=== PATIENT | male | born 1940 | race Hispanic/Latino ===

== ENCOUNTER 2020-01-15 16:14 | Inpatient (IN) | payer MEDICARE, OTHER ==
[~2020-01-15] VITALS: Ht 154.9 cm; Wt 66.9 kg
[2020-01-15] MEDS ORDERED: GABAPENTIN100 MG (16:26)
[2020-01-15] MEDS ORDERED: FAMOTIDINE20 MG (16:26)
[2020-01-15] MEDS ORDERED: GLIPIZIDE5 MG (16:26)
[2020-01-15] MEDS ORDERED: ATORVASTATIN CA80 MG (16:26)
[2020-01-15] MEDS ORDERED: LOSARTAN POTASS50 MG (16:26)
[2020-01-15] MEDS ORDERED: PANTOPRAZOLE SO40 MG (16:26)
[2020-01-15] MEDS ORDERED: METFORMIN HCL1000 MG (16:26)
[2020-01-15] MEDS ORDERED: CLOPIDOGREL75 MG (16:26)
[2020-01-15] MEDS ORDERED: CARVEDILOL12.5 MG (16:26)
[2020-01-15] MEDS ORDERED: ISOSORBIDE MONO30 MG (16:26)
[2020-01-15 16:57] LABS: EOSINOPHILS % 0.2 % (0.0-6.0); HEMATOCRIT 28.5 % (38.2-49.6); LYMPHOCYTES # (AUTO) 0.9 (1.0-3.2); MEAN CORPUSCULAR HEMOGLOBIN 27.6 pg (28-32); MEAN CORPUSCULAR HGB CONC 31.6 g/dL (31-35); MEAN CORPUSCULAR VOLUME 87.4 fL (81-99); MONOCYTES # (AUTO) 1.2 (0.2-0.8); MONOCYTES % 18.1 % (4.4-11.3); NEUTROPHILS # (AUTO) 4.2 (2.1-6.9); NEUTROPHILS % 66.4 % (38.7-80.0); PLATELET COUNT 124 x10e3/uL (140-360); RED BLOOD COUNT 3.26 x10e6/uL (4.3-5.7); RED CELL DISTRIBUTION WIDTH 16.5 % (11.7-14.4)
[2020-01-15 17:02] LABS: INR 1.06; PARTIAL THROMBOPLASTIN TIME 39.8 seconds (23.8-35.5); PROTHROMBIN TIME 14.5 seconds (11.9-14.5)
[2020-01-15 17:11] LABS: ALANINE AMINOTRANSFERASE 21 IU/L (0-55); ALBUMIN 3.4 g/dL (3.5-5.0); ALBUMIN/GLOBULIN RATIO 0.8 (0.8-2.0); ALKALINE PHOSPHATASE 125 IU/L (40-150); ANION GAP 17.8 mmol/L (8-16); BLOOD UREA NITROGEN 23 mg/dL (7-26); BUN/CREATININE RATIO 21 (6-25); CALCIUM 9.9 mg/dL (8.4-10.2); CARBON DIOXIDE 21 mmol/L (22-29); CHLORIDE 102 mmol/L (98-107); CREATINE KINASE 80 IU/L (30-200); CREATININE, SERUM 1.08 mg/dL (0.72-1.25); EST GLOMERULAR FILTRATION RATE > 60 ML/MIN (60-); GLUCOSE 101 mg/dL (74-118); POTASSIUM 4.8 mmol/L (3.5-5.1); SODIUM 136 mmol/L (136-145)
--- NOTE | 2020-01-15 17:11 | Diagnostic Imaging Report ---
History: History of fall, syncopal episode 10 days ago. Patient with hematoma to right side of the head. Comparison studies: None Technique: Axial images were obtained from the brain and cervical spine. Coronal and sagittal images reconstructed from the axial data. Dose modulation, iterative reconstruction, and/or weight based adjustment of the mA/kV was utilized to reduce the radiation dose to as low as reasonably achievable. Intravenous contrast: None Findings: Head CT: Scalp/skull: There is a right parietal scalp hematoma which measures up to 2.5 cm in thickness. While the hematoma is predominantly low density, there are multiple foci of hyperdensities suggestive of more acute blood products. There is no underlying calvarial fracture. Brain sulci: Moderately prominent Ventricles: Moderately prominent. No hydrocephalus. Extra-axial spaces: No masses. No fluid collections. Parenchyma: Ill-defined periventricular and subcortical white matter hypodensities are nonspecific but consistent with chronic microvascular ischemic changes. No masses, hemorrhage, acute or chronic cortical vascular insults. Sellar/suprasellar region: No abnormalities. Craniocervical junction: Patent foramen magnum. No Chiari one malformation. Cervical spine CT: Airway: Patent. Fractures: None. Soft tissues: No gross abnormalities. Atlantoaxial articulation: Intact. Alignment: Normal lordosis. No scoliosis. Cervicomedullary junction: No abnormalities. Patent foramen magnum. Vertebrae: No infection or neoplasm. Degenerative changes: Multilevel cervical spondylosis is present with varying degrees of disc height loss, posterior disc osteophyte complexes, uncovertebral hypertrophy, and facet hypertrophy. There is no severe osseous narrowing of the spinal canal. There is moderate neural foraminal stenosis on the left at C5-C6, with more mild levels of stenoses at additional levels. Incidental findings: None. IMPRESSION: Head CT: 1. Large right parietal scalp hematoma with evidence of acute blood products. No underlying fracture. 2. No acute intracranial abnormality. Chronic findings: 1. Global parenchymal volume loss and chronic microvascular ischemic changes. Cervical spine CT: 1. No acute osseous injury of the cervical spine. 2. Cannot adequately evaluate for ligament, spinal cord and or vascular abnormalities. Signed by: DR Jad Rousseau M.D. on 01/16/2020 8:10 AM
[2020-01-15] MEDS ORDERED: ONDANSETRON HCL INJ 2MG/ML 2ML 2 MG/ML VIAL IV PRN (17:45)
[2020-01-15] MEDS ORDERED: DEXTROSE 50% SYRINGE 50 ML IV PRN (17:45)
--- OUTSIDE RECORDS SUMMARY | 2020-01-15 18:33 | XMS REPORT ---
Author Author [facility] t Organization [facility] Address Unknown Phone Unavailable Care Team Providers Care Agriculture Laboratory Technician Name Role Phone Unavailable Unavailable Payers Payer Name Policy Type Policy Number Effective Date Expiration D ate Problems This patient has no known problems. Allergies, Adverse Reactions, Alerts Allergy Name Allergy Type Status Severity Reaction(s) Onset Date Inacti ve Date Treating Clinician Comments No Known Allergies DA Active U 2017-01-12 00:00:00 Medications This patient has no known medications. Encounters Start Date/Time End Date/Time Encounter Type Admission Type [facility] Care Department Encounter ID 2020-01-12 08:35:42 Outpatient [id number] Results Test Description Test Time Test Comments Text Results Atomic Results Result Comments GLUBED 2020-01-09 13:00:00 GLUBED (test code = GLUBED) 163 mg/dL 74-106 Perf ormed by certified spar machine operator helper at [facility] [id number] 07:56:00* Test Item Value Reference Range Comments GLUBED (test code = GLUBED) 93 mg/dL 74-106 Perf ormed by certified spar machine operator helper at [facility] [id number] 21:59:00* Test Item Value Reference Range Comments GLUBED (test code = GLUBED) 80 mg/dL 74-106 Perf ormed by certified spar machine operator helper at [facility] [id number] 19:26:00* Test Item Value Reference Range Comments TROPONIN-I (test code = TROPI) <0.015 ng/mL 0-0.045 COMMENTS TO UPTWIST SPINNER: COLLECT 3 HOURS AFTER PREVIOUS [id number] 16:52:00* Test Item Value Reference Range Comments GLUBED (test code = GLUBED) 82 mg/dL 74-106 [facility]f [facility] spar machine [facility] [id number] 16:31:00* Test Item Value Reference Range Comments TROPONIN-I (test code = TROPI) <0.015 ng/mL 0-0.045 COMMENTS TO UPTWIST SPINNER: COLLECT 3 HOURS AFTER PREVIOUS SAMPLEB-TYPE NATRIURETIC [id number] 11:27:00* Test Item Value Reference Range Comments B-TYPE NATRIURETIC PEPTIDE (test code = BNP) 99.05 pgram/mL 0-1 00 - CT C-SPINE W/O [id number] 11:16:00 Name: GLENN NEWMAN [facility] : 1940 Age/S: 79 / M [address] [facility] Unit #: [id number] Loc: [place] [address] Phys: Nando Lin MD Acct: [id number] Dis Date: Status: REG ER PHONE #: [phone] Exam Date: 01/08/2020 1054 FAX #: [phone] Reason: fall on saturday, r sided ALEXIS EXAMS: CPT CODE: [id number] CT C-SPINE W/O CONTRAST 94393 HISTORY: Fall and pain. COMPARISON: None available. CT cervical spine without contrast: Automated exposure control. Location: [facility]. No acute fracture of the cervical spine. No prevertebral soft tissue swelling is noted. Scattered posterior marginal osteophytes and moderate facet hypertrophy resulting in mild canal and moderate foraminal stenosis. Correlate with radicular symptoms. Unremarkable atrophied thyroid glands. The mediastinum is unremarkable. Lung apices are clear with minimal bullous change. Anatomic alignment vertebral body heights are maintained. Disc space loss at multiple levels. Uncovertebral joints are narrowed. Osteopenia. IMPRESSION: No acute fracture. Anatomic al ignment. Vertebral body heights are maintained. DJD. Electro nically Signed by Adilia Pope on 01/08/2020 at 1116 Reported and signed by: Ld Pope M.D. CC: Nando Lin MD; Alon Klein Technologist:Tawny Blevins,RT(R),CT CTDI: DLP: Trnscb Date/Time: 01/08/2020 (1116) [email or web address] Orig Print D/T: S: 01/08/2020 (1120) PAGE 1 Signed Report - CT HEAD/BRAIN W/O CONT 2020-01-08 11:01:00 Name: GLENN NEWMAN [facility] : 1940 Age/S: 79 / M [address] [facility] Unit #: [id number] Loc: [place] [address] Phys: Nando Lin MD Acct: [id number] Dis Date: Status: REG ER PHONE #: [phone] Exam Date: 01/08/2020 1054 FAX #: [phone] Reason: fall on saturday, r sided ALEXIS EXAMS: CPT CODE: [id number] CT HEAD/BRAIN W/O CONT 33429 HISTORY: Fall and pain. COMPARISON: None available. Location: [facility]. CT brain without contrast: Automated exposure control. No acute intracranial bleeds or extra-axial collections are noted. No acute territorial vascular infarction is noted. Calcified granuloma in the left parietal cortex. The sulci, gyri, ventricles and subarachnoid spaces and the basilar cisterns are normal for patient's age. No herniation or hydrocephalus or midline shift is noted. Mild periventricular ischemic gliosis is noted. Age-appropriate atrophy is noted as well. Portions of the visualized paranasal sinuses demonstrated mucosal thickening of the floor of the right maxillary sinus. No obvious bony calvarial defect is noted. Right parietal large scalp hematoma without subjacent fracture. IMPRESSION: No acute intracranial bleeds or extra-axial collections. No acute territorial vascular infarction. No herniation or hydrocephalus or midline shift. 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 at 1101 Reported and signed by: Ld Hashmy, M.D. PAGE 1 Signed Report (CONTINUED) Name: GLENN NEWMAN [facility] : 1940 Age/S: 79 / M [address] Unit #: [id number] Loc: [place] [address] Phys: Nando Lin MD Acct: [id number] Dis Date: Status: REG ER PHONE #: [phone] Exam Date: 01/08/2020 1054 FAX #: [phone] Reason: fall on saturday, r sided ALEXIS EXAMS: CPT CODE: [id number] CT HEAD/BRAIN W/O CONT 47251 <Continued> CC: Nando Lin MD; Alon Klein Technologist:Tawny Blevins,RT(R),CT CTDI: DLP: Trnscb Date/Time: 01/08/2020 (110) [email or web address] Orig Print D/T: S: 01/08/2020 (6394) PAGE 2 Signed Report BASIC METABOLIC [id number] 11:00:00* Test Item Value Reference Range Comments SODIUM (test code = NA) 139 mmol/L 136-145 POTASSIUM (test code = K) 5.0 mmol/L 3.5-5.1 CHLORIDE (test code = CL) 106.0 mmol/L 98-107 CARBON DIOXIDE (test code = CO2) 24.0 mmol/L 21-32 ANION GAP (test code = GAP) 14.0 10-20 GLUCOSE (test code = GLU) 110 mg/dL 74-106 BLOOD UREA NITROGEN (test code = BUN) 22 mg/dL 7-18 GLOMERULAR FILTRATION RATE (test code = GFR) > 60 mL/min >=6 0 Estimated GFR by using Modified MDRD formula.Chronic kidney disease is defined as either kidney damageor GFR <60 mL/min/1.73 m2 for >3 months. CREATININE (test code = CREAT) 1.00 mg/dL 0.7-1.3 BUN/CREATININE RATIO (test code = BUN/CREA) 22.0 10-2 0 CALCIUM (test code = CA) 8.7 mg/dL 8.5-10.1 [id number] 11:00:00* Test Item Value Reference Range Comments TROPONIN-I (test code = TROPI) <0.015 ng/mL 0-0.045 PROTHROMBIN [id number] 10:48:00* Test Item Value Reference Range Comments PROTHROMBIN TIME PATIENT (test code = PTP) 13.1 seconds 9.0-1 4.0 INTERNATIONAL NORMAL RATIO (test code = INR) 1.1 0.8 -1.2 The therapeutic range for oral anticoagulant therapy formost indications is an international normalized ratio (INR)of between 2.0 and 3.0. The recommended therapeutic INRrange for various clinical situations is listed below: Clinical Situation INR range Pulmonary e mbolism treatment (2.0-3.0)Venous thrombosis treatmentVenous thrombosis prophylaxis (high risk surgery)Prevention of systemic embolism from: Acute myocardial infarction Valvular heart disease Atrial fibrillation Mechanical prosthetic heart valves (2.5-3.5) IS PATIENT ON ANTICOAGULANTS? NTHROMBOPLASTIN TIME [id number] 10:48:00* Test Item Value Reference Range Comments THROMBOPLASTIN TIME PARTIAL (test code = PTT) 36.5 seconds 23 .0-37.0 IS PATIENT ON ANTICOAGULANTS? NCBC W/O [id number] 10:36:00* Test Item Value Reference Range Comments WHITE BLOOD CELL (test code = WBC) 4.8 K/mm3 4.5-12.5 RED BLOOD CELL (test code = RBC) 3.21 mill/mm3 4.0-5.8 HEMOGLOBIN (test code = HGB) 8.9 gram/dL 13.0-17.5 HEMATOCRIT (test code = HCT) 28.6 % 42.0-52.0 MEAN CELL VOLUME (test code = MCV) 89.1 fL 80-98 MEAN CELL HGB (test code = MCH) 27.7 picogram 27.0-33.0 MEAN CELL HGB CONCETRATION (test code = MCHC) 31.1 gram/dL 33 .0-36.0 RED CELL DISTRIBUTION WIDTH (test code = RDW) 16.2 % 11 .6-16.2 PLATELET COUNT (test code = PLT) 103 K/mm3 150-450 MEAN PLATELET VOLUME (test code = MPV) 9.5 fL 6.7-11.0 - XR CHEST 1 [id number] 10:26:00 FAX: Nando Lin MD [place]: St: PRE FAX: Alon Palomino MD [phone] Name: GLENN NEWMAN [facility] : 1940 Age/S: 79/M [address] [facility] Unit #: [id number] Loc: [place] [address] Phys: Nando Lin MD Acct: [id number] Dis Date: Status: PRE ER PHONE #: [phone] Exam Date: 01/08/2020 1023 FAX #: [phone] Reason: CHEST PAIN EXAMS: CPT CODE: [id number] XR CHEST 1 V 75639 HISTORY: Chest pain. COMPARISON: March 04, 2019. Location: [facility]. No acute infiltrates, effusion or congestion is noted. Mild hyperinflation and scarring. 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 Mild cardiomegaly. IMPRESSION: No acute infiltrates, effusion or congestion. at 1026 Reported and signed by: Ld Pope M.D. CC: Nando Lin MD; Alon Klein Technologist: RT PEDRO(R) Trnscrd Date/Time/By: 01/08/2020 (7080) : By: [email or web address] Orig Print D/T: S: 01/08/2020 (1285) PAGE 1 Signed Report [id number] 13:18:00* Test Item Value Reference Range Comments GLUBED (test code = GLUBED) 164 mg/dL 74-106 [facility]f [facility] spar machine [facility] [id number] 09:18:00* Test Item Value Reference Range Comments GLUBED (test code = GLUBED) 145 mg/dL 74-106 Perf ormed by certified spar machine [facility] [id number] 23:14:00* Test Item Value Reference Range Comments TROPONIN-I (test code = TROPI) <0.015 ng/mL 0-0.045 COMMENTS TO UPTWIST SPINNER: COLLECT 3 HOURS AFTER PREVIOUS [id number] 18:23:00* Test Item Value Reference Range Comments TROPONIN-I (test code = TROPI) <0.015 ng/mL 0-0.045 COMMENTS TO UPTWIST SPINNER: COLLECT 3 HOURS AFTER PREVIOUS SAMPLETROPONIN I [id number] 13:55:00* Test Item Value Reference Range Comments TROPONIN I RAPID (test code = TROPIRAP) 0.01 ng/mL <0.08 Please Note New Reference Range 0.00-0.079 ng/mL - Negative>or= 0.08 ng/mL - Positive The use of serial sampling and testing protocol is arecommended practice.An elevated troponin level alone is often not sufficient fordiagnosis of myocardial infarction. Troponin results obtained by different assays may vary.Evaluation of the extent of myocardial damage based onincrease of troponin would be valid only if similarmethodology is used. BASIC METABOLIC [id number] 12:27:00* Test Item Value Reference Range Comments SODIUM (test code = NA) 138 mmol/L 136-145 POTASSIUM (test code = K) 4.5 mmol/L 3.5-5.1 CHLORIDE (test code = CL) 108.0 mmol/L 98-107 CARBON DIOXIDE (test code = CO2) 22.0 mmol/L 21-32 ANION GAP (test code = GAP) 12.5 10-20 GLUCOSE (test code = GLU) 132 mg/dL 74-106 BLOOD UREA NITROGEN (test code = BUN) 18 mg/dL 7-18 GLOMERULAR FILTRATION RATE (test code = GFR) > 60 mL/min >=6 0 Estimated GFR by using Modified MDRD formula.Chronic kidney disease is defined as either kidney damageor GFR <60 mL/min/1.73 m2 for >3 months. CREATININE (test code = CREAT) 1.00 mg/dL 0.7-1.3 BUN/CREATININE RATIO (test code = BUN/CREA) 18.0 10-2 0 CALCIUM (test code = CA) 8.8 mg/dL 8.5-10.1 [id number] 12:27:00* Test Item Value Reference Range Comments TROPONIN-I (test code = TROPI) <0.015 ng/mL 0-0.045 - XR CHEST 1 [id number] 12:20:00 FAX: Alon Palomino MD [phone] [place]: St: [facility] FAX: Keron Helms MD Name: GLENN NEWMAN [facility] : 1940 Age/S: 78/M [address] [facility] Unit #: [id number] Loc: [place] [address] Phys: Keron Helms MD Acct: [id number] Dis Date: Status: REG ER PHONE #: [phone] Exam Date: 03/04/2019 1152 FAX #: [phone] Reason: CHEST PAIN EXAMS: CPT CODE: [id number] XR CHEST 1 V 04731 TECHNIQUE - XR CHEST 1 V . COMPARISON: Chest x-ray 06/02/2018 HISTORY: 78 years Male CHEST PAIN FINDINGS: Lungs: No nodules. No air space or interstitial lung disease. Lungs are normal in volume. Mediastinum and alaina: No enlargement or other mass. Cardiovascular structures: No cardiomegaly. No abnormalities in vascular structures. Pleura/CP angles: Clear. No pneumothorax. Likely calcified pleural plaques bilaterally. Bones: No osseous abnormalities. Soft tissues: No abnormalities. Tubes and lines: None. Other: None. IMPRESSION: No acute cardiopulmonary abnormalities. at 1220 Reported and signed by: Salty Azul CC: Alon Klein; Keron Helms MD Technologis t: AFSHAN BRENNAN JR Trnscrd Date/Time/By: 03/04/2019 (6600) : By: Nelly Orig Print D/T: S: 03/04/2019 (9517) PAGE 1 Signed Report CBC W/O [id number] 12:01:00* Test Item Value Reference Range Comments WHITE BLOOD CELL (test code = WBC) 3.8 K/mm3 4.5-12.5 RED BLOOD CELL (test code = RBC) 3.39 mill/mm3 4.0-5.8 HEMOGLOBIN (test code = HGB) 10.3 gram/dL 13.0-17.5 HEMATOCRIT (test code = HCT) 31.6 % 42.0-52.0 MEAN CELL VOLUME (test code = MCV) 93.2 fL 80-98 MEAN CELL HGB (test code = MCH) 30.4 picogram 27.0-33.0 MEAN CELL HGB CONCETRATION (test code = MCHC) 32.6 gram/dL 33 .0-36.0 RED CELL DISTRIBUTION WIDTH (test code = RDW) 15.3 % 11 .6-16.2 PLATELET COUNT (test code = PLT) 103 K/mm3 150-450 MEAN PLATELET VOLUME (test code = MPV) 9.3 fL 6.7-11.0
--- NOTE | 2020-01-15 19:56 | Consultation ---
DATE OF CONSULTATION: 01/15/2020 REASON FOR CONSULTATION: Scalp hematoma. HISTORY OF PRESENT ILLNESS: The patient is a pleasant 79-year-old male, who approximately 10 days ago fell after feeling dizzy at home. He apparently lost consciousness, and was taken to the emergency room at [place] where he apparently was worked up. According to him, they found no problems with his heart, etc. The patient does have a history of dizziness and lightheadedness. Today, his primary care physician, has sent him to [facility] for treatment of a scalp hematoma, which he developed subsequently to the emergency room visit at [place], where he was hospitalized for two days. The patient is currently taking Plavix. PAST MEDICAL HISTORY: Significant for appendectomy, cholecystectomy, and prostatectomy. The patient's history is significant for hypertension, diabetes, and reflux. MEDICATIONS: See the list. He is taking Plavix but is not taking any anticoagulation such as Coumadin or the newer anticoagulant. SOCIAL HISTORY: The patient does not smoke. Does not drink. ALLERGIES: HE HAS NO KNOWN ALLERGIES. PHYSICAL EXAMINATION: GENERAL: Reveals an alert 79-year-old male, who appears to be frail, who has trouble ambulating because of dizziness. VITAL SIGNS: He is afebrile with stable vital signs. HEAD: Reveals a parietal hematoma, which has a 3 cm necrotic patch of skin in that location. The hematoma is fluctuant. Pupils are equal. NECK: Supple. HEART: Reveals regular rhythm. LUNGS: Reveal clear lung arguello. ABDOMEN: Soft and nontender. EXTREMITIES: Revealed no clubbing, cyanosis, or edema. SKIN: Shows no evidence of jaundice. LABORATORY DATA: On admission, CT scan of the head and spine that reveal no intracranial process and arthritis of the spine. ASSESSMENT: Fluctuant hematoma of the right parietal region with necrotic skin. Multiple medical problems including a history of syncopal episode, which according to him they were not able to find the reason at recent hospitalization at [facility] after he fell. PLAN: The plan is to proceed with incision and drainage of scalp hematoma tomorrow morning. The COVID-19 test has been ordered and is pending. MD VALENCIA Saavedra/HALEY /[id number] MTDDc
--- NOTE | 2020-01-15 20:25 | NUR ---
Received pt in bed from ER. AAOx3 marshallese speaking. Able to make needs known. Resp even and unlabored. No SOB/Resp distress noted. Skin warm and dry to touch. Hematoma to right lateral/posterior head. dry blood noted. Pt denies pain at this time. IV to left AC 20g intact. Pt states he ambulates with assistance of cane but became unsteady at home and fell. Instructed patient to call for assistance to get up out of bed. Nonskid socks applied to both feet. Bed in locked and low position. Call light in reach. Will cont to monitor.
[2020-01-15] MEDS: INSULIN LISPRO 100 UNIT/1 ML 3ML VIAL SQ SCH (21:00)
[2020-01-15 21:01] VITALS: BP 132/79
[2020-01-15 21:14] VITALS: BP 132/79
[2020-01-15 21:38] VITALS: BP 132/79
[2020-01-15] MEDS ORDERED: ASPIR 8181 MG (21:49)
[2020-01-15] MEDS: MORPHINE SULFATE 2 MG/ML SYR 1ML IV PRN (22:10)
[2020-01-15] MEDS ORDERED: SODIUM CHLORIDE 0.9% 1000ML 1,000 ML IV SCH (23:00)
[2020-01-16] VITALS (8 sets, daily range): BP systolic 122–183; BP diastolic 60–107
[2020-01-16] MEDS: MORPHINE SULFATE 2 MG/ML SYR 1ML IV PRN (02:03)
--- NOTE | 2020-01-16 06:15 | NUR ---
Pt currently resting in bed with eyes closed. No s/sx of distress noted, bed in low position. IVF infusing w/o diff. Easily aroused, denies pain at this time. Remains NPO at this time for scheduled procedure.
--- NOTE | 2020-01-16 07:00 | NUR ---
BEDSIDE SHIFT REPORT RECEIVED FROM THE SKI TOPPER RN. PT IS ON NPO FOR PROCEDURE. EDUCATED PT ABOUT FALL PRECAUTIONS. PT VERBALIZED UNDERSTANDING. CALL LIGHT WITH IN EASY REACH. INSTRUCTED PT TO USE CALL LIGHT FOR ALL THE NEEDS. BED IS LOW AND LOCKED. SIDE RAILS X2. BED ALARM IS ON. PT DENIES NEEDS AT THIS TIME.
[2020-01-16 07:07] LABS: BASOPHILS % 0.2 % (0.0-1.0); EOSINOPHILS % 0.2 % (0.0-6.0); HEMATOCRIT 30.3 % (38.2-49.6); HEMOGLOBIN 9.5 g/dL (14.0-18.0); LYMPHOCYTES % 16.4 % (18.0-39.1); MEAN CORPUSCULAR HEMOGLOBIN 27.5 pg (28-32); MEAN CORPUSCULAR HGB CONC 31.4 g/dL (31-35); MEAN CORPUSCULAR VOLUME 87.6 fL (81-99); MONOCYTES # (AUTO) 1.1 (0.2-0.8); MONOCYTES % 17.5 % (4.4-11.3); NEUTROPHILS # (AUTO) 3.9 (2.1-6.9); NEUTROPHILS % 64.7 % (38.7-80.0); PLATELET COUNT 128 x10e3/uL (140-360); RED BLOOD COUNT 3.46 x10e6/uL (4.3-5.7); RED CELL DISTRIBUTION WIDTH 16.4 % (11.7-14.4)
[2020-01-16 07:23] LABS: ALANINE AMINOTRANSFERASE 21 IU/L (0-55); ALBUMIN 3.5 g/dL (3.5-5.0); ALBUMIN/GLOBULIN RATIO 0.9 (0.8-2.0); ALKALINE PHOSPHATASE 133 IU/L (40-150); ANION GAP 14.6 mmol/L (8-16); BLOOD UREA NITROGEN 17 mg/dL (7-26); BUN/CREATININE RATIO 21 (6-25); CALCIUM 9.6 mg/dL (8.4-10.2); CARBON DIOXIDE 25 mmol/L (22-29); CHLORIDE 100 mmol/L (98-107); CREATININE, SERUM 0.82 mg/dL (0.72-1.25); EST GLOMERULAR FILTRATION RATE > 60 ML/MIN (60-); GLUCOSE 106 mg/dL (74-118); POTASSIUM 4.6 mmol/L (3.5-5.1); SODIUM 135 mmol/L (136-145)
[2020-01-16] MEDS: INSULIN LISPRO 100 UNIT/1 ML 3ML VIAL SQ SCH ×4 (07:30→21:00)
[2020-01-16 07:39] LABS: CREATINE KINASE 59 IU/L (30-200)
[2020-01-16 08:25] LABS: LYMPHOCYTES % (MANUAL) 15 % (19-48); MONOCYTES % (MANUAL) 9 % (3.4-9.0); NEUTROPHILS % (MANUAL) 76 % (40-74); PLATELET ESTIMATE SLIGHTLY DECREASED; PLATELET MORPHOLOGY COMMENT NORMAL; RBC MORPHOLOGY COMMENT NORMAL
--- NOTE | 2020-01-16 08:40 | NUR ---
PAGED DR. BARRAZA AND INFORMED PT BP 177/107. PT IS ON NPO FOR PROCEDURE. OKAY TO GIVE ONE TIME PO MED NOW PER THE
[2020-01-16] MEDS ORDERED: AMLODIPINE BESYLATE 10 MG TAB PO NR (08:45)
[2020-01-16] MEDS: CARVEDILOL 12.5 MG TAB PO SCH ×3 (08:59→17:01)
[2020-01-16] MEDS: FAMOTIDINE 20 MG TAB PO SCH ×3 (09:00→17:00)
[2020-01-16] MEDS ORDERED: PANTOPRAZOLE SOD 40 MG TABEC PO SCH (09:00)
[2020-01-16] MEDS: GABAPENTIN 100 MG CAP PO SCH ×4 (09:00→21:55)
[2020-01-16] MEDS ORDERED: BUPIVACAINE 0.5%/EPI 30 ML SDV INJ ONE (09:02)
--- NOTE | 2020-01-16 09:10 | NUR ---
PT OFF UNIT FOR PROCEDURE IN SAFE CONDITION.
[2020-01-16] MEDS ORDERED: HYDRALAZINE HCL 20 MG/ML VIAL IV PRN (09:45)
[2020-01-16] MEDS ORDERED: CEFAZOLIN SOD 1 GM VIAL IV SCH ×2 (09:45→14:00)
[2020-01-16] MEDS ORDERED: CEFAZOLIN SOD 1 GM/NS 50ML 50 ML IV SCH (10:00)
[2020-01-16] MEDS ORDERED: ONDANSETRON HCL INJ 2MG/ML 2ML 2 MG/ML VIAL IV PRN ×2 (10:45→12:45)
[2020-01-16] MEDS ORDERED: HYDROCODONE/APAP 7.5MG-325MG 1 EA TAB PO PRN (10:45)
--- NOTE | 2020-01-16 11:18 | NUR ---
PT IS BACK TO UNIT. HEAD IS COVERED WITH COTRES BANDAGE. DRESSING CDI. PT IS AAOX4. BED ALARM IS ON. EDUCATED PT ABOUT FALL PRECAUTIONS. PT VERBALIZED UNDERSTANDING. HOB 45 DEGREE PER THE . ALL SAFETY MEASURES IN PLACE. PT DENIES NEEDS AT THIS TIME.
--- NOTE | 2020-01-16 11:18 | Operative Report ---
DATE OF PROCEDURE: 01/16/2020 SURGEON: Florin Steinberg MD PREOPERATIVE DIAGNOSIS: Status post fall 11 days ago with scalp hematoma. POSTOPERATIVE DIAGNOSIS: Status post fall 11 days ago with scalp hematoma. PROCEDURE PERFORMED: Incision and drainage of scalp hematoma. ANESTHESIA: General endotracheal. ESTIMATED BLOOD LOSS: About 100 mL. DRAINS: None. COMPLICATIONS: None. INDICATION AND FINDINGS: This is a pleasant 79-year-old male, who approximately 11 days ago fell after feeling dizzy at home. The patient apparently during the fall lost consciousness. He was taken to the emergency room at [place]. Apparently, he was worked up for any source of cardiac problems for the syncopal episode and none was found. I do not have the records of [place]. I assume that he also had a CT scan done at the time. The patient then presented to [facility] on 01/14 with complaints of increasing swelling and pain on the right side of the head. The patient states that he has unsteady gait and has been suffering from syncopal episodes and loses balance easily. Patient had been taking Plavix, which has been stopped. INTRAOPERATIVE FINDINGS: The patient had about a 10 cm cavity secondary to an infected hematoma that was located in the right parietal region. This cavity was deeply extended through the galea over to the temporalis muscle. The bone was not exposed. There was some slight nonviable tissue that was debrided. There were some old clots and purulent infected hematoma. Aerobic and anaerobic cultures were taken. DESCRIPTION OF PROCEDURE: With the patient lying on the operative table in the supine position, after administration of general anesthesia, he was prepped and draped for I and D of hematoma in right parietal region. The patient had about a 3 cm patch of necrotic skin in the parietal region where hematoma was fluctuant. The cavity was entered after we excised all of that necrotic skin, which was full thickness with the subcutaneous tissue down to the galea until we enter the cavity and all the pus was drained. The old clots were also drained, but this was mainly an infected hematoma with purulent material. After we did that, there was some slight amounts of necrotic tissue over the galea and that was removed. There was abundant oozing throughout because the patient had been taking Plavix until yesterday. All of that was then cauterized until we stop all the bleeding and ooziness as much as I could. After copiously irrigating the cavity with saline solution, we then did a packing with Kerlix roll, impregnated with saline and Betadine and then we put a pressure dressing over the scalp with sterile dressing. The patient tolerated the procedure well, was taken to the recovery room in stable condition. MD VALENCIA Saavedra/HALEY /[id number]
--- NOTE | 2020-01-16 11:30 | NUR ---
PT HAS NO IV ABX. PAGED DR. BARRAZA AND LEFT MESSAGE . WAITING FOR THE RESPONSE FROM THE
[2020-01-16] MEDS: ISOSORBIDE MONONITRATE 30 MG TAB CR PO SCH (11:33)
--- NOTE | 2020-01-16 12:00 | NUR ---
CORTES BANDAGE SOILED DRESSING ON THE HEAD REMOVED BY PT. DRESSING REINFORCED. PT IS AAOX4. DENIES NEEDS AT THIS TIME.
[2020-01-16] MEDS ORDERED: SODIUM CHLORIDE 0.9% 1000ML 1,000 ML IV SCH (12:45)
--- NOTE | 2020-01-16 13:30 | NUR ---
DR. Morales PIÑA AT BEDSIDE. I GM IV ANCEF Q6 PER THE DR. [facility] AND INFORMED THE SAME.
--- NOTE | 2020-01-16 13:35 | NUR ---
MODERATE DRAINAGE FROM SURGICAL SITE. INFORMED DR. Morales PIÑA AT BEDSIDE.
[2020-01-16] MEDS: CEFAZOLIN SOD 1 GM/NS 50ML 50 ML IV SCH ×2 (14:07→21:55)
[2020-01-16 15:40] LABS: CREATINE KINASE 51 IU/L (30-200)
[2020-01-16] MEDS ORDERED: FENTANYL CITRATE/PF 100MCG/2 ML INJ ONE (18:33)
[2020-01-16] MEDS ORDERED: SEVOFLURANE INHAL SOLN 250 ML PEN BTL ONE (19:11)
[2020-01-16] MEDS ORDERED: CEFAZOLIN SOD 1 GM VIAL ONE (19:11)
[2020-01-16] MEDS ORDERED: ETOMIDATE 2 MG/ML 10 ML INJ IV ONE (19:11)
--- NOTE | 2020-01-16 19:20 | NUR ---
BEDSIDE SHIFT REPORT GIVEN TO THE TIN CAN FEEDER RN. PT DENIED FURTHER NEEDS.
[2020-01-17] VITALS (8 sets, daily range): BP systolic 102–134; BP diastolic 60–72
[2020-01-17] MEDS: CEFAZOLIN SOD 1 GM/NS 50ML 50 ML IV SCH ×4 (04:21→18:25)
[2020-01-17] MEDS: ISOSORBIDE MONONITRATE 30 MG TAB CR PO SCH (06:27)
[2020-01-17 06:30] LABS: HEMOGLOBIN 8.3 g/dL (14.0-18.0); LYMPHOCYTES # (AUTO) 0.8 (1.0-3.2); LYMPHOCYTES % 17.9 % (18.0-39.1); MEAN CORPUSCULAR HEMOGLOBIN 27.6 pg (28-32); MEAN CORPUSCULAR HGB CONC 31.9 g/dL (31-35); MEAN CORPUSCULAR VOLUME 86.4 fL (81-99); MONOCYTES % 22.9 % (4.4-11.3); NEUTROPHILS # (AUTO) 2.5 (2.1-6.9); NEUTROPHILS % 56.7 % (38.7-80.0); PLATELET COUNT 91 x10e3/uL (140-360); RED BLOOD COUNT 3.01 x10e6/uL (4.3-5.7); RED CELL DISTRIBUTION WIDTH 16.5 % (11.7-14.4)
[2020-01-17 06:50] LABS: ANION GAP 13.8 mmol/L (8-16); BLOOD UREA NITROGEN 13 mg/dL (7-26); BUN/CREATININE RATIO 16 (6-25); CALCIUM 8.6 mg/dL (8.4-10.2); CARBON DIOXIDE 22 mmol/L (22-29); CHLORIDE 103 mmol/L (98-107); CREATININE, SERUM 0.79 mg/dL (0.72-1.25); EST GLOMERULAR FILTRATION RATE > 60 ML/MIN (60-); GLUCOSE 101 mg/dL (74-118); POTASSIUM 3.8 mmol/L (3.5-5.1); SODIUM 135 mmol/L (136-145)
--- NOTE | 2020-01-17 07:06 | NUR ---
Patient condition throughout the night was stable, patient endorsed to next shift for continuity of care.
--- NOTE | 2020-01-17 07:24 | NUR ---
PATIENT REPOSITIONED IN BED. CORTES WRAP DRESSING TO HEAD, SCD IN PLACE. BED IN LOWER POSITION, CALL LIGHT AT REACH, INSTRUCTED TO CALL FOR ASSISTANCE NEEDED.
[2020-01-17] MEDS ORDERED: GLIPIZIDE 5 MG TAB PO SCH (07:30)
[2020-01-17] MEDS: INSULIN LISPRO 100 UNIT/1 ML 3ML VIAL SQ SCH ×4 (07:30→21:00)
[2020-01-17] MEDS: FAMOTIDINE 20 MG TAB PO SCH ×2 (08:00→16:30)
[2020-01-17] MEDS: GABAPENTIN 100 MG CAP PO SCH ×3 (09:09→21:00)
[2020-01-17] MEDS: CARVEDILOL 12.5 MG TAB PO SCH ×2 (09:09→17:23)
[2020-01-17 09:22] LABS: LYMPHOCYTES % (MANUAL) 13 % (19-48); MONOCYTES % (MANUAL) 20 % (3.4-9.0); NEUTROPHILS % (MANUAL) 67 % (40-74)
[2020-01-17] MEDS: VANCOMYCIN 1GM/NS 250 ML 250 ML IV SCH (11:00)
--- NOTE | 2020-01-17 11:16 | History and Physical ---
CHIEF COMPLAINT: Worsening right parietal scalp hematoma. HISTORY OF PRESENT ILLNESS: The patient is an 79-year-old male, who walks with a cane and apparently had an extensive fall to the right side, developed some chest pain and has more bruise to the right parietal area. He was at [facility] and at the time, the cardiac enzyme was negative. The pain was more after post trauma. Multiple workup was done including CT scan of the brain and the chest. No obvious injury except for a small bruise to the right occipital area. The patient was on Plavix and aspirin at the time. He did not show any significant bleed. The patient was subsequently discharged home to follow up with his family physician on a close monitoring. When the patient was seen by the primary care physician, the swelling has increased in size and that there was some significant hematoma to the right side of the head. Subsequently, Dr. Steinberg was consulted and the patient was placed in the hospital for surgical intervention including evacuation of the right parietal scalp hematoma. The patient is otherwise stable. Plavix and aspirin were on hold. PAST MEDICAL HISTORY: Diabetes type 2, reflux, dyslipidemia, hypertension, history of enlarged prostate, cholecystectomy, appendectomy, old lower extremity injury, walking with a cane. SOCIAL HISTORY: The patient does not smoke or use alcohol. No regular drugs. ALLERGIES: TO NO KNOWN ALLERGIES. HOME MEDICATIONS: Aspirin, Lipitor, Coreg, Plavix, Pepcid, gabapentin, glipizide, isosorbide monohydrate, losartan, metformin, and Protonix. PHYSICAL EXAMINATION: VITAL SIGNS: Temperature is 97.8, blood pressure 102/61, pulse rate is 87, and respirations 20. GENERAL: The patient is not in acute distress. Awake. HEENT: Right parietal scalp status post incision and drainage. Dressing intact. NECK: Supple. There are some bruises on the skin area. PULMONARY: Diminished breath sounds without any wheezing or rales. CARDIOVASCULAR: Regular rate and rhythm. ABDOMEN: Soft, non-distention. EXTREMITIES: No gross cyanosis or edema. NEUROLOGIC: No gross focal deficit. Moving all extremities. LABORATORY DATA: WBC 6, hemoglobin 9.5, hematocrit 30, and platelet is 128. Sodium is 135, potassium 3.8, chloride 103, bicarb 22, BUN 13, creatinine 0.8, and glucose is 101. Cardiac enzymes negative. CT of the brain showed large right parietal scalp hematoma. No acute intracranial abnormality. IMPRESSION: 1. Right worsening parietal scalp hematoma, status post incision and drainage. 2. Acute blood loss anemia. 3. Multiple chronic stable medical problems. 4. Low platelets. PLAN: Continue to hold off on aspirin and Plavix. Repeat lab work. Iron treatment. Monitor the patient's CBC count. Empiric antibiotics and to culture obtain from the evacuation of the hematoma. We will monitor the patient closely at this time. MD ELIZABETH Marquez/MODL /[id number]
--- NOTE | 2020-01-17 11:46 | NUR ---
PATIENT ASSISTED TO THE RESTROOM AND BACK TO BED, HAD A BM. BED IN LOWER POSITION, CALL LIGHT AT REACH, BED ALARM ACTIVATED.
[2020-01-17] MEDS: IRON-VITAMIN-MINERAL CAPSULE PO SCH ×2 (12:09→17:23)
--- NOTE | 2020-01-17 14:27 | NUR ---
MD IN TO SEE PATIENT, NEW ORDER RECEIVED.
--- NOTE | 2020-01-17 20:45 | NUR ---
patient received awake, alert, lying quietly in bed. vss. no c/o pain noted. dressing to head off per patient. dressing reapplied and secured. pm assessment complete. patient instructed to call for assistance when needed.
--- NOTE | 2020-01-17 20:46 | NUR ---
REPORT GIVEN TO ONCOMING NURSE. PATIENT REMAIN RESTING IN BED WITH HOB ELEVATED, DRESSING TO HIS HEAD REMAIN INTACT, CALL LIGHT IN REACH.
[2020-01-18] VITALS (8 sets, daily range): BP systolic 106–157; BP diastolic 55–89
[2020-01-18] MEDS: ISOSORBIDE MONONITRATE 30 MG TAB CR PO SCH (05:35)
[2020-01-18] MEDS: CEFAZOLIN SOD 1 GM/NS 50ML 50 ML IV SCH ×2 (05:35)
[2020-01-18 06:25] LABS: EOSINOPHILS % 0.3 % (0.0-6.0); HEMATOCRIT 23.9 % (38.2-49.6); HEMOGLOBIN 7.5 g/dL (14.0-18.0); LYMPHOCYTES # (AUTO) 0.6 (1.0-3.2); LYMPHOCYTES % 18.4 % (18.0-39.1); MEAN CORPUSCULAR HEMOGLOBIN 27.3 pg (28-32); MEAN CORPUSCULAR HGB CONC 31.4 g/dL (31-35); MEAN CORPUSCULAR VOLUME 86.9 fL (81-99); MONOCYTES # (AUTO) 0.9 (0.2-0.8); NEUTROPHILS # (AUTO) 1.8 (2.1-6.9); NEUTROPHILS % 53.8 % (38.7-80.0); PLATELET COUNT 108 x10e3/uL (140-360); RED BLOOD COUNT 2.75 x10e6/uL (4.3-5.7); RED CELL DISTRIBUTION WIDTH 16.3 % (11.7-14.4)
[2020-01-18 06:44] LABS: ANION GAP 11.7 mmol/L (8-16); BLOOD UREA NITROGEN 10 mg/dL (7-26); BUN/CREATININE RATIO 14 (6-25); CALCIUM 8.7 mg/dL (8.4-10.2); CARBON DIOXIDE 25 mmol/L (22-29); CHLORIDE 104 mmol/L (98-107); CREATININE, SERUM 0.74 mg/dL (0.72-1.25); EST GLOMERULAR FILTRATION RATE > 60 ML/MIN (60-); GLUCOSE 115 mg/dL (74-118); POTASSIUM 3.7 mmol/L (3.5-5.1); SODIUM 137 mmol/L (136-145)
--- NOTE | 2020-01-18 07:08 | NUR ---
PATIENT OFF UNIT FOR A PROCEDURE.
[2020-01-18] MEDS: INSULIN LISPRO 100 UNIT/1 ML 3ML VIAL SQ SCH ×4 (07:30→21:34)
[2020-01-18] MEDS: FAMOTIDINE 20 MG TAB PO SCH ×2 (07:30→16:30)
[2020-01-18 08:14] LABS: BAND NEUTROPHILS % (MANUAL) 1 %; LYMPHOCYTES % (MANUAL) 17 % (19-48); MONOCYTES % (MANUAL) 12 % (3.4-9.0); NEUTROPHILS % (MANUAL) 70 % (40-74)
[2020-01-18 08:15] LABS: POLYCHROMASIA FEW
[2020-01-18 08:16] LABS: ANISOCYTOSIS SLIGHT; PLATELET ESTIMATE SLIGHTLY DECREASED; PLATELET MORPHOLOGY COMMENT NORMAL; RBC MORPHOLOGY COMMENT NORMAL
[2020-01-18] MEDS ORDERED: ONDANSETRON HCL INJ 2MG/ML 2ML 2 MG/ML VIAL IV PRN (08:30)
--- NOTE | 2020-01-18 09:15 | Operative Report ---
DATE OF PROCEDURE: 01/18/2020 SURGEON: Florin Steinberg MD PREOPERATIVE DIAGNOSIS: Status post incision and drainage of large right parietal hematoma on 01/16/2020, brought back to the operating room to explore the wound under anesthesia for possible debridement and to change the dressing and control bleeding as needed. INTRAOPERATIVE FINDINGS: The patient has a 7 x 5 cm cavity after evacuation of the hematoma on 01/15 with a skin defect that is about 4 cm wide. The hematoma cavity was essentially clean except for minor area and there was no active bleeding after the dressing was changed. DESCRIPTION OF PROCEDURE: With the patient lying on the operative table in the supine position after administration of general anesthesia, he was prepped and draped for dressing change, possible debridement of necrotic tissue of the right parietal hematoma cavity. The head was turned to the left and he was then prepped with Betadine after the dressing was removed. We did not see any bleeding. There was some minimal necrotic tissue, that was removed with scissors and then the cavity was flushed with saline solution and then packed with Betadine and Kerlix roll and a sterile dressing was applied. The patient tolerated the procedure well and was taken to recovery room in stable condition. Florin Steinberg MD PJR/MODL /[id number]
[2020-01-18] MEDS ORDERED: SODIUM CHLORIDE 0.9% 250ML 250 ML IV ONE (09:45)
[2020-01-18] MEDS ORDERED: FUROSEMIDE INJ 10 MG/ML 2 ML VIAL IV SCH (09:45)
--- NOTE | 2020-01-18 09:49 | NUR ---
PATIENT BACK TO UNIT FROM A PROCEDURE. HAD A WOUND DRESSING CHANGE DONE THE SURGEON. ALERT AND VERBALLY RESPONSIVE, BUT DROWSY. DRESSING TO HEAD WITH CORTES WRAP DRY AND INTACT. V/S 97.6-79- 18-149/89 AND 99% ON RA
--- NOTE | 2020-01-18 09:53 | NUR ---
Pt sleeping soundly and no family present. Pit Furnace Operator left a card describing availability of single wire saw operator and instructions on how to contact a single wire saw operator. CARMEN BLOCK Pit Furnace Operator Spiritual Care Department O: [phone]
[2020-01-18] MEDS: IRON-VITAMIN-MINERAL CAPSULE PO SCH ×2 (10:07→17:15)
[2020-01-18] MEDS: GABAPENTIN 100 MG CAP PO SCH ×3 (10:07→21:00)
[2020-01-18] MEDS: MECLIZINE HCL 12.5 MG TAB PO SCH ×3 (10:07→22:00)
[2020-01-18] MEDS: CARVEDILOL 12.5 MG TAB PO SCH ×2 (10:07→17:00)
[2020-01-18] MEDS ORDERED: ACETAMINOPHEN 325 MG TAB PO ONE (10:15)
[2020-01-18] MEDS: VANCOMYCIN 1GM/NS 250 ML 250 ML IV SCH (10:26)
--- NOTE | 2020-01-18 12:24 | NUR ---
PATIENT HAS AN ORDER FOR BLOOD TRANSFUSION. AWAITING FOR TRANSLATION LINE CONNECTION TO SIGN CONSENT.
--- NOTE | 2020-01-18 15:45 | NUR ---
PATIENT ASSISTED TO THE RESTROOM AND BACK TO BED. CALL LIGHT AT REACH. BED ALARM ACTIVATED.
[2020-01-18] MEDS ORDERED: FENTANYL CITRATE/PF 100MCG/2 ML INJ ONE (18:40)
[2020-01-18] MEDS ORDERED: PROPOFOL IV EMULSION 10 MG/ML 20 ML VIAL ONE (18:46)
[2020-01-18] MEDS ORDERED: LIDOCAINE HCL 2% LOCAL INJ 5 ML SDV VIAL INJ ONE (18:46)
[2020-01-18] MEDS ORDERED: DEXAMETHASONE SOD PHOS INJ 4 MG/ML VIAL ONE (18:46)
[2020-01-18] MEDS ORDERED: SEVOFLURANE INHAL SOLN 250 ML PEN BTL ONE (18:46)
[2020-01-18] MEDS ORDERED: ONDANSETRON HCL INJ 2MG/ML 2ML 2 MG/ML VIAL ONE (18:46)
--- NOTE | 2020-01-18 18:51 | NUR ---
CONSENT SIGNED FOR BLOOD TRANSFUSION.
[2020-01-19] VITALS (8 sets, daily range): BP systolic 95–159; BP diastolic 53–80
--- NOTE | 2020-01-19 03:18 | NUR ---
First unit PRBC infusing w/o diff. pt in bed easily aroused, denies pain or discomfort. Personal items and call patel within reach. Will con to mon
[2020-01-19] MEDS: MECLIZINE HCL 12.5 MG TAB PO SCH ×3 (06:33→21:15)
[2020-01-19] MEDS: ISOSORBIDE MONONITRATE 30 MG TAB CR PO SCH (06:34)
[2020-01-19] MEDS: INSULIN LISPRO 100 UNIT/1 ML 3ML VIAL SQ SCH ×4 (07:30→21:15)
[2020-01-19] MEDS: FAMOTIDINE 20 MG TAB PO SCH ×2 (08:50→16:30)
[2020-01-19] MEDS: IRON-VITAMIN-MINERAL CAPSULE PO SCH ×2 (08:51→16:30)
[2020-01-19] MEDS: CARVEDILOL 12.5 MG TAB PO SCH ×2 (08:51→16:30)
[2020-01-19] MEDS: VANCOMYCIN 1GM/NS 250 ML 250 ML IV SCH (08:51)
[2020-01-19] MEDS: GABAPENTIN 100 MG CAP PO SCH ×3 (08:51→21:15)
[2020-01-19] MEDS: HYDROCODONE/APAP 7.5MG-325MG 1 EA TAB PO PRN (09:04)
[2020-01-19 09:12] LABS: HEMATOCRIT 29.7 % (38.2-49.6); HEMOGLOBIN 9.3 g/dL (14.0-18.0); LYMPHOCYTES # (AUTO) 0.8 (1.0-3.2); LYMPHOCYTES % 22.3 % (18.0-39.1); MEAN CORPUSCULAR HEMOGLOBIN 27.7 pg (28-32); MEAN CORPUSCULAR HGB CONC 31.3 g/dL (31-35); MEAN CORPUSCULAR VOLUME 88.4 fL (81-99); MONOCYTES # (AUTO) 0.7 (0.2-0.8); MONOCYTES % 20.8 % (4.4-11.3); NEUTROPHILS # (AUTO) 1.9 (2.1-6.9); NEUTROPHILS % 55.4 % (38.7-80.0); PLATELET COUNT 111 x10e3/uL (140-360); RED BLOOD COUNT 3.36 x10e6/uL (4.3-5.7)
[2020-01-19 09:44] LABS: BLOOD UREA NITROGEN 12 mg/dL (7-26); BUN/CREATININE RATIO 15 (6-25); CALCIUM 8.9 mg/dL (8.4-10.2); CARBON DIOXIDE 23 mmol/L (22-29); CHLORIDE 104 mmol/L (98-107); EST GLOMERULAR FILTRATION RATE > 60 ML/MIN (60-); GLUCOSE 219 mg/dL (74-118); SODIUM 136 mmol/L (136-145)
--- NOTE | 2020-01-19 11:43 | NUR ---
Patient would need an order for custom-made plastic AFO for BLE to prevent foot drop and equinus gait pattern. Pt trips when walking due to weak dorsiflexors. Family would like to provide the orthosis if not covered by insurance. Addendum: 01/19/20 at 1146 by Santy Yan PT Amended: Links added.
--- NOTE | 2020-01-19 14:19 | NUR ---
WOUND CARE CONSULT FOR 79 YO MALE HX OF SURGICAL DEBR POSTERIOR HEAD 01/18/2020 TERRANCE 19 ON CONSERVATIVE PUP STATUS AND INTERVENTIONS AND VISCO MATTRESS LABS: WBC-3.31 HGB_7.5 GLUCOSE-115 SKIN ASSESSMENT COMPLETE PATIENT PRESENTS WITH POST SURGICAL WOUND POSTERIOR HEAD 4CM X4CM X3CM UNDERMINING 9O'CLOCK -5 O'CLOCK 5CM HERNANDEZ AND NEPHEW NEGATIVE PRESSURE DEVICE APPLIED WITH BLACK FOAM TO WOUND BASE CONTINUOUS SETTING @ 120 MMHG PATIENT PREMEDICATED WITH NO COMPLAINTS OF PAIN FULL SEAL AND NEGATIVE PRESSURE ACHIEVED NEXT DRESSING CHANGE DUE Saturday01/22/2020 Addendum: 01/19/20 at 1427 by Zbigniew Foreman RN Amended: Links added.
[2020-01-19] MEDS: CEPHALEXIN 500 MG CAP PO SCH ×2 (16:30→21:15)
--- NOTE | 2020-01-19 19:00 | NUR ---
Received bedside report from day nurse. Patient awake and sitting up in bed, no s/s of distress at this time. Bed locked and in low position, side rails up, call light placed within reach. All safety measures in place. Will continue to monitor.
[2020-01-20] VITALS (9 sets, daily range): BP systolic 105–156; BP diastolic 61–81
[2020-01-20] MEDS: MECLIZINE HCL 12.5 MG TAB PO SCH ×3 (05:55→21:16)
[2020-01-20] MEDS: HYDROCODONE/APAP 7.5MG-325MG 1 EA TAB PO PRN (05:55)
[2020-01-20] MEDS: ISOSORBIDE MONONITRATE 30 MG TAB CR PO SCH (05:56)
[2020-01-20] MEDS: CEPHALEXIN 500 MG CAP PO SCH ×3 (05:56→21:16)
[2020-01-20 06:28] LABS: EOSINOPHILS % 0.3 % (0.0-6.0); HEMATOCRIT 29.1 % (38.2-49.6); HEMOGLOBIN 9.1 g/dL (14.0-18.0); LYMPHOCYTES # (AUTO) 0.9 (1.0-3.2); LYMPHOCYTES % 25.9 % (18.0-39.1); MEAN CORPUSCULAR HGB CONC 31.3 g/dL (31-35); MEAN CORPUSCULAR VOLUME 86.4 fL (81-99); MONOCYTES # (AUTO) 0.8 (0.2-0.8); MONOCYTES % 21.8 % (4.4-11.3); NEUTROPHILS # (AUTO) 1.7 (2.1-6.9); NEUTROPHILS % 50.3 % (38.7-80.0); PLATELET COUNT 104 x10e3/uL (140-360); RED BLOOD COUNT 3.37 x10e6/uL (4.3-5.7); RED CELL DISTRIBUTION WIDTH 16.1 % (11.7-14.4)
--- NOTE | 2020-01-20 07:06 | NUR ---
Bedside report given to day nurse. Patient in stable condition, no s/s of distress at this time. All safety measures in place.
[2020-01-20] MEDS: INSULIN LISPRO 100 UNIT/1 ML 3ML VIAL SQ SCH ×4 (07:30→21:00)
[2020-01-20] MEDS: VANCOMYCIN 1GM/NS 250 ML 250 ML IV SCH (08:57)
[2020-01-20] MEDS: CARVEDILOL 12.5 MG TAB PO SCH ×2 (08:57→16:58)
[2020-01-20] MEDS: IRON-VITAMIN-MINERAL CAPSULE PO SCH ×2 (08:57→16:58)
[2020-01-20] MEDS: GABAPENTIN 100 MG CAP PO SCH ×3 (08:57→21:00)
[2020-01-20] MEDS: FAMOTIDINE 20 MG TAB PO SCH ×2 (08:57→16:57)
[2020-01-20 10:21] LABS: PLATELET ESTIMATE SLIGHTLY DECREASED; PLATELET MORPHOLOGY COMMENT NORMAL; RBC MORPHOLOGY COMMENT NORMAL
[2020-01-20] MEDS ORDERED: ONDANSETRON HCL 4 MG ORAL DISINTEGRATING TAB PO PRN (18:00)
--- NOTE | 2020-01-20 19:14 | NUR ---
patient received awake, alert, lying quietly in bed. vss. no c/o pain noted. wound vac to head wound c,d,i. pm assessment complete.
[2020-01-21] VITALS (8 sets, daily range): BP systolic 115–147; BP diastolic 73–87
[2020-01-21] MEDS: ISOSORBIDE MONONITRATE 30 MG TAB CR PO SCH (05:19)
[2020-01-21] MEDS: MECLIZINE HCL 12.5 MG TAB PO SCH ×3 (05:19→21:10)
[2020-01-21] MEDS: CEPHALEXIN 500 MG CAP PO SCH ×3 (05:19→21:10)
--- NOTE | 2020-01-21 07:00 | NUR ---
Received bedside report. pt is sleeping in bed, no s/s of distress. call light within reach and bed safety in place.
[2020-01-21] MEDS: FAMOTIDINE 20 MG TAB PO SCH ×2 (08:03→17:21)
[2020-01-21] MEDS: IRON-VITAMIN-MINERAL CAPSULE PO SCH ×2 (08:03→17:22)
[2020-01-21] MEDS: CARVEDILOL 12.5 MG TAB PO SCH ×2 (08:03→17:22)
[2020-01-21] MEDS: GABAPENTIN 100 MG CAP PO SCH ×3 (08:04→21:00)
[2020-01-21] MEDS: VANCOMYCIN 1GM/NS 250 ML 250 ML IV SCH (08:04)
[2020-01-21] MEDS: INSULIN LISPRO 100 UNIT/1 ML 3ML VIAL SQ SCH ×4 (08:09→21:00)
--- NOTE | 2020-01-21 16:27 | NUR ---
Nutrition Screen Note RD Recommendation for Physician: - Continue current diet - BG and insulin management per MD Plan of Care: RD following, monitoring for tolerance and adequacy Nutrition reason for involvement: LOS Primary Diagnose(s): anemia, hematoma of R parietal scalp PMH: DM2, reflux, dyslipidemia, HTN, cholecystectomy, appendectomy Ht: 61 in Wt: 153 lb BMI: 28.9 kg/m2 IBW: [address] Assessment: (01/20) 79 YOM admitted for a hematoma of the R parietal scalp s/p fall. Pt seen today for LOS. Pt mostly Maltese speaking, denied GI distress or wt loss and declined education. Pt with 75-100% meal intake since admit. Pt discussed during am MDR, pending discharge. Wound care following for scalp wound. Chart reviewed. Labs and meds reviewed. Will continue to monitor. Current Diet: 1800 ADA Malnutrition Evaluation (01/21/20) The patient does not meet criteria for a specified degree of malnutrition at this time. Will re-evaluate at follow-up as appropriate. Diet Education Needs Assessment: Diet education indicated, pt declined. Diet tolerance: tolerating po Nutrition Care Level: Low Signed: Arabella Reddy RD, LD, [facility]
--- NOTE | 2020-01-21 18:56 | NUR ---
pt told the GLAZE WIPER the he fell and hit his knee. RN assessed patient, he stated that he was using the urinal on the edge of the bed and wanted to move the walker, the walker was unsteady which caused him to loose balance and slide to his knees on the floor. there are no abrasions to the knee and the pt does not c/o pain. the bed alarm is on and the patient was educated again to use the call light and ask for help. Dr. Marivel Ortiz notified Addendum: 01/21/20 at 1857 by Maria Guadalupe Bustamante RN pt told the GLAZE WIPER the he fell and hit his knee. RN assessed patient, he stated that he was using the urinal on the edge of the bed and wanted to move the walker, the walker was unsteady which caused him to loose balance and slide to his knees on the floor. there are no abrasions to the knee and the pt does not c/o pain. the bed alarm is on and the patient was educated again to use the call light and ask for help. Dr. Lyon notified @ 1857 and got verbal orders to put ice packs on knees
--- NOTE | 2020-01-21 19:23 | NUR ---
patient received awake, alert, lying quietly in bed. vss. no c/o pain noted. bed alarm on and call patel placed within reach. patient instructed to call for assistance when needed.
--- NOTE | 2020-01-21 19:24 | NUR ---
Spoke to Shari, the pt's granddaughter, and informed her that the patient had a small fall and landed on his knees. informed daughter that the patient is stable, no injuries and no c/o pain. also informed granddaughter that the doctor was notified and just got order to monitor pt and apply ice packs
[2020-01-22] VITALS: BP 139/84
--- NOTE | 2020-01-22 | NUR ---
patient able to ambulate to bathroom with walker with assistance. no c/o pain noted at this time.
[2020-01-22 04:00] VITALS: BP 154/83
[2020-01-22] MEDS: CEPHALEXIN 500 MG CAP PO SCH (05:49)
[2020-01-22] MEDS: MECLIZINE HCL 12.5 MG TAB PO SCH (05:49)
[2020-01-22] MEDS: ISOSORBIDE MONONITRATE 30 MG TAB CR PO SCH (05:49)
[2020-01-22 06:12] LABS: BASOPHILS % 0.2 % (0.0-1.0); EOSINOPHILS % 0.2 % (0.0-6.0); HEMATOCRIT 31.4 % (38.2-49.6); HEMOGLOBIN 10.1 g/dL (14.0-18.0); LYMPHOCYTES # (AUTO) 0.9 (1.0-3.2); LYMPHOCYTES % 21.8 % (18.0-39.1); MEAN CORPUSCULAR HEMOGLOBIN 27.8 pg (28-32); MEAN CORPUSCULAR HGB CONC 32.2 g/dL (31-35); MEAN CORPUSCULAR VOLUME 86.5 fL (81-99); MONOCYTES % 23.5 % (4.4-11.3); NEUTROPHILS # (AUTO) 2.2 (2.1-6.9); NEUTROPHILS % 53.3 % (38.7-80.0); PLATELET COUNT 97 x10e3/uL (140-360); RED BLOOD COUNT 3.63 x10e6/uL (4.3-5.7)
[2020-01-22 06:39] LABS: ANION GAP 11.9 mmol/L (8-16); BLOOD UREA NITROGEN 11 mg/dL (7-26); BUN/CREATININE RATIO 15 (6-25); CALCIUM 9.4 mg/dL (8.4-10.2); CARBON DIOXIDE 25 mmol/L (22-29); CHLORIDE 104 mmol/L (98-107); CREATININE, SERUM 0.75 mg/dL (0.72-1.25); EST GLOMERULAR FILTRATION RATE > 60 ML/MIN (60-); GLUCOSE 102 mg/dL (74-118); POTASSIUM 3.9 mmol/L (3.5-5.1); SODIUM 137 mmol/L (136-145)
[2020-01-22] MEDS: INSULIN LISPRO 100 UNIT/1 ML 3ML VIAL SQ SCH (07:30)
[2020-01-22 07:53] LABS: ANISOCYTOSIS SLIGHT; LYMPHOCYTES % (MANUAL) 27 % (19-48); MONOCYTES % (MANUAL) 14 % (3.4-9.0); NEUTROPHILS % (MANUAL) 57 % (40-74); PLATELET ESTIMATE SLIGHTLY DECREASED; PLATELET MORPHOLOGY COMMENT NORMAL; RBC MORPHOLOGY COMMENT NORMAL
[2020-01-22 08:01] VITALS: BP 121/74
[2020-01-22] MEDS: FAMOTIDINE 20 MG TAB PO SCH (08:20)
[2020-01-22 08:32] VITALS: BP 121/74
[2020-01-22] MEDS: CARVEDILOL 12.5 MG TAB PO SCH (08:54)
[2020-01-22] MEDS: GABAPENTIN 100 MG CAP PO SCH (08:54)
[2020-01-22] MEDS: IRON-VITAMIN-MINERAL CAPSULE PO SCH (08:54)
[2020-01-22] MEDS: VANCOMYCIN 1GM/NS 250 ML 250 ML IV SCH (09:50)
--- NOTE | 2020-01-22 10:58 | NUR ---
PROVIDED WALKER PER ORDER, OBTAINED SIGNATURES AND GAVE TO HOUSE SUP FOR PROCESSING.
--- NOTE | 2020-01-22 11:29 | NUR ---
ORDERS FOR HOME HEALTH, SKILLED NURSE EVAL AND TREAT, HOME WOUND VAC TO BE APPLIED ON [facility] HOME AND CHANGE WOUND VAC Q -- CM SPOKE WITH PT AND PT'S OVER PHONE ; AZAEL JOHNSON AT [phone] CHOICE LETTER SIGNED FOR [facility] [phone] IMM EXPLAINED TO PT, SIGNED AND PLACED IN CHART COPY OF CHOICE LETTER AND IMM PLACED IN PT'S CARE TRANSITION FOLDER CLINICAL INFORMATION PAPERFAXED TO [facility] AT [phone] CONFIRMATION REC'D SPOKE WITH BERE MKCEE WITH [facility] TODAY WHO CONFIRMS THEY HAVE A NURSE TO PUT VAC ON EITHER LATE THIS EVENING OF EARLY AM WET TO DRY DRESSING APPLIED BY DR Morales PIÑA TODAY
[2020-01-22] MEDS ORDERED: KEFLEX500 MG PO (11:49)
[2020-01-22] MEDS ORDERED: TYLENOL WITH C1 EACH PO (11:50)
[2020-01-22 12:08] VITALS: BP 124/71
--- NOTE | 2020-01-22 13:19 | NUR ---
Patient discharged home, Wound care nurse changed the dressing, as per home health nurse will see patient tonight or tomorrow AM. Discharge instruction explained to patient and to daughter as well, prescription given, IV canula removed with tip intact, no ss of infiltration noted, family here to pick the patient, rolling walker given, denies any pain, no distress noted
--- NOTE | 2020-01-22 16:35 | NUR ---
WOUND CARE FOLLOW UP CONSULT FOR 79 YO MALE HX OF SURGICAL DEBR POSTERIOR HEAD 01/18/2020 TERRANCE 19 ON CONSERVATIVE PUP STATUS AND INTERVENTIONS AND VISCO MATTRESS LABS: WBC-4.04 HGB_10.1 GLUCOSE-102 SKIN ASSESSMENT COMPLETE PATIENT PRESENTS WITH POST SURGICAL WOUND POSTERIOR HEAD 4CM X4CM X3CM UNDERMINING 9 O'CLOCK -[address] PIÑA REMOVED HERNANDEZ AND NEPHEW NEGATIVE PRESSURE DEVICE APPLIED WITH BLACK FOAM TO WOUND BASE CONTINUOUS SETTING @ 120 MMHG TODAY AND APPLIED A WET TO DRY DRESSING. ROOFING LAYER INFORMED A WET TO DRY DRESSING NEEDS MADHU APPLIED AT THE TIME; PT WILL RESUME HERNANDEZ AND NEPHEW NEGATIVE PRESSURE DEVICE APPLIED WITH BLACK FOAM TO WOUND BASE CONTINUOUS SETTING @ 120 MMHG AT HOME PER HOME HEALTH. PT IS BEING DISCHARGED TODAY. PT IS AWARE OF TREATMENT PLAN. Addendum: 01/22/20 at 1641 by Racheal Wong RN Amended: Links added.
--- NOTE | 2020-01-22 21:59 | Discharge Summary ---
PRIMARY CARE PHYSICIAN: Alon Klein MD UNIVERSAL GRINDER TOOL: Florin Steinberg MD FINAL DIAGNOSES: 1. Right parietal scalp hematoma, status post incision and drainage. 2. Hematoma with Methicillin-sensitive Staphylococcus aureus infection. 3. Acute blood loss anemia, status post 2 units blood transfusion. 4. Baseline peripheral vascular disease with previous stent greater than the year per Cardiology phone call and discussion. SUMMARY: The patient is an 79-year-old male with chronic peripheral vascular disease, hypertension, and coronary artery disease. The patient has stent over a year ago. He was on Plavix and aspirin due to peripheral vascular disease. Apparently, the patient has also left ankle problem and the patient fall at times. The patient came in after discharged recently from [facility] because of the fall. At that time, he had a very small hematoma. The patient went home and then came back to the hospital after consultation with Dr. Florin Steinberg as an outpatient sent from Dr. Alon Klein, primary care physician. The patient has a large hematoma. He underwent incision and drainage. Culture grew out the MSSA Staphylococcus aureus. The patient is otherwise stable. He is doing well on antibiotics. The patient had a wound VAC in place. The area is closing, but he will be discharged home with a wound VAC. Here, the patient has received physical therapy. He is walking with a walker. He is not falling, not having any dizziness. He is on meclizine. The patient is otherwise stable. Blood pressure is stable as well. The patient will have a rolling walker to go home. He will also take 10 days of Keflex. Along with that, home health has been arranged and also wound VAC has been arranged as well. He will resume his home medication except for aspirin and Plavix. Per Dr. Pal, the patient's dry kiln operator helper, the patient will not restart on Plavix and aspirin until further evaluation by him hopefully in approximately two weeks or so. Hopefully, by then, the wound is healed and that the patient will not have any further bleed in the area or any risks of bleeding. The patient is otherwise stable. Again, the patient is not dizzy. He is walking with a walker. Physical therapy and he is doing well. The patient will discharge home today. DISCHARGE MEDICATIONS: 1. Keflex 500 mg, 3 times a day for 10 days. 2. Tylenol No. 3 p.r.n., for pain. 3. Meclizine 12.5 mg q.6h as needed for dizziness. DISCHARGE FOLLOWUP: The patient is to follow up with Dr. Steinberg. Stop aspirin and Plavix until further notice. Interim home health with wound VAC. Follow up with Dr. Steinberg for wound VAC management as well. The patient is stable, discharged home. Follow up with primary physician for medication reconciliation approximately one week. MD ELIZABETH Marquez/MODL /[id number]
== END 2020-01-22 13:10 | disposition home health service (06) | DRG 571 ==
LOC: ER 16:14 → ERHOLD 17:39 → MED/SURG3 20:23
PROVIDERS: ADMIT Internal Medicine; ATTEND Internal Medicine
PROC: 0JB00ZZ Excision of Scalp Subcutaneous Tissue and Fascia, Open Approach (ICD-10-PCS; principal; 2020-01-16 10:00)
PROC: 0HD0XZZ Extraction of Scalp Skin, External Approach (ICD-10-PCS; 2020-01-18)
PROC: 30233N1 Transfusion of Nonautologous Red Blood Cells into Peripheral Vein, Percutaneous Approach (ICD-10-PCS; 2020-01-19)
DX: S00.03XA Contusion of scalp, initial encounter (principal); D62 Acute posthemorrhagic anemia; I10 Essential (primary) hypertension; E11.9 Type 2 diabetes mellitus without complications; K21.9 Gastro-esophageal reflux disease without esophagitis; E78.5 Hyperlipidemia, unspecified; Z90.49 Acquired absence of other specified parts of digestive tract; Z90.79 Acquired absence of other genital organ(s); Z82.49 Family history of ischemic heart disease and other diseases of the circulatory system; Z91.81 History of falling; B95.61 Methicillin susceptible Staphylococcus aureus infection as the cause of diseases classified elsewhere
CPT/HCPCS: 36415; 70450; 72125; 80048; 80053; 80202; 82550; 82553; 82948; 84484; 85025; 85610; 85730; 86850; 86900; 86920; 87071; 87075; 87186; 87205; 87635; 93005; 96372; 97139; 97605; 99251; 99284; J0690; J1100; J1940; J2001; J2270; J2405; J3010; J3370; J7030; J7050; P9016

== ENCOUNTER → 2020-03-22 | Day surgery (SDC) | payer MEDICARE, OTHER ==
[2020-03-17 13:53] LABS: BASOPHILS % 0.2 % (0.0-1.0); EOSINOPHILS % 0.4 % (0.0-6.0); HEMATOCRIT 31.9 % (38.2-49.6); HEMOGLOBIN 9.8 g/dL (14.0-18.0); LYMPHOCYTES # (AUTO) 1.3 (1.0-3.2); LYMPHOCYTES % 28.5 % (18.0-39.1); MEAN CORPUSCULAR HEMOGLOBIN 27.1 pg (28-32); MEAN CORPUSCULAR HGB CONC 30.7 g/dL (31-35); MEAN CORPUSCULAR VOLUME 88.4 fL (81-99); NEUTROPHILS # (AUTO) 2.3 (2.1-6.9); NEUTROPHILS % 49.1 % (38.7-80.0); PLATELET COUNT 105 x10e3/uL (140-360); RED BLOOD COUNT 3.61 x10e6/uL (4.3-5.7); RED CELL DISTRIBUTION WIDTH 16.9 % (11.7-14.4)
--- NOTE | 2020-03-17 13:59 | Diagnostic Imaging Report ---
EXAMINATION: CHEST 2 VIEWS INDICATION: Pre-operative COMPARISON: None FINDINGS: LINES/TUBES:None LUNGS:The lungs are mildly hyperinflated. No focal consolidation or pulmonary edema. PLEURA:No pleural effusion or pneumothorax. MEDIASTINUM:The cardiomediastinal silhouette appears normal in size and shape. Atherosclerotic calcifications of the thoracic aorta. BONES/SOFT TISSUES:No acute osseous injury. ABDOMEN:No free air under the diaphragm. Status post cholecystectomy. IMPRESSION: No focal pneumonia or pulmonary edema. Signed by: Troy Katz MD on 03/17/2020 1:55 PM
[2020-03-17 14:15] LABS: ANION GAP 17.2 mmol/L (8-16); BLOOD UREA NITROGEN 20 mg/dL (7-26); BUN/CREATININE RATIO 22 (6-25); CALCIUM 9.6 mg/dL (8.4-10.2); CARBON DIOXIDE 24 mmol/L (22-29); CHLORIDE 108 mmol/L (98-107); CREATININE, SERUM 0.91 mg/dL (0.72-1.25); EST GLOMERULAR FILTRATION RATE > 60 ML/MIN (60-); GLUCOSE 87 mg/dL (74-118); POTASSIUM 5.2 mmol/L (3.5-5.1); SODIUM 144 mmol/L (136-145)
[~2020-03-22] MED LIST: ASPIR 8181 MG; ASPIR 8181 MG PO; ATORVASTATIN CA80 MG; CARVEDILOL12.5 MG; CEFAZOLIN SOD 1 GM/NS 50ML 50 ML IV ONE; CLOPIDOGREL75 MG; FAMOTIDINE20 MG; GABAPENTIN100 MG; GLIPIZIDE5 MG; ISOSORBIDE MONO30 MG; KEFLEX500 MG PO; LIDOCAINE 1% W/EPINEPHRINE 20 ML VIAL ONE; LOSARTAN POTASS50 MG; METFORMIN HCL1000 MG; MUPIROCIN 2% OINT 22 GM TUBE ONE; PANTOPRAZOLE SO40 MG; PLAVIX75 MG PO; TYLENOL WITH C1 EACH PO
[2020-03-22 09:15] VITALS: BP 144/78
--- NOTE | 2020-03-22 11:12 | Operative Report ---
DATE OF PROCEDURE: 03/22/2020 SURGEON: Gilmer Madrigal MD PREOPERATIVE DIAGNOSIS: Wound, right parietal scalp, 5 cm2. POSTOPERATIVE DIAGNOSIS: Wound, right parietal scalp, 5 cm2. PROCEDURE: Excision of wound, right parietal scalp and then flap closure 25 cm2. ANESTHESIA: General. HISTORY: The patient is an 79-year-old male who developed a wound on the scalp secondary to a surgical debridement. The patient was quite delayed in getting treatment performed because he felt that the wound would heal by secondary intention. When several months had elapsed, he realized that the wound would not heal. He is now agreed to have excision of the wound and flap closure. The risks, benefits, and alternatives of treatment were discussed with the patient and the family, and they are prepared to undergo the procedure as outlined. DESCRIPTION OF PROCEDURE: The patient was marked preoperatively in the holding area. He was brought to the operating theater and after the induction of adequate general anesthesia, he was prepped and draped in a supine position and a time-out was performed. The wound measures approximately 5 cm2 and was located in the right parietal area. The wound was then infiltrated with 1% Xylocaine with epinephrine and then after waiting appropriate amount of time for maximum vasoconstrictive effect, the wound was excised full-thickness through skin and subcutaneous tissues of the scalp down to the galea. At this point, with the entire wound removed, appreciation of the defect was then performed. A flap closure utilizing the opposing flaps was felt to be the best option. The flaps were then designed and then the proposed areas of incision were infiltrated with 1% Xylocaine with epinephrine. After waiting appropriate amount of time, the incisions were made through the skin and the subcutaneous tissue down to the through the galea and at this point, the flaps were then elevated. The edges of the flaps were made hemostatic using electrocautery. The flaps were then transposed and rotated into their position and secured in place using 4-0 nylon in interrupted horizontal mattress fashion. At the completion of the procedure, the flaps are noted to cover the entirety of the wound. The total surface area of the flaps is 25 cm2. At this point, the incisions were dressed with Bactroban ointment, Xeroform gauze, and then a sterile bulky dressing was applied. The estimated blood loss of procedure was approximately 25 to 30 mL. The patient was then returned to recovery room in satisfactory condition and discharged with a postoperative instruction sheet as well as a followup appointment. MD ANI Juarez/HALEY /[id number]
== END | disposition home or self-care (01) ==
LOC: OR 06:06
PROVIDERS: ATTEND Plastic Surgery
DX: S01.00XA Unspecified open wound of scalp, initial encounter (principal); I25.10 Atherosclerotic heart disease of native coronary artery without angina pectoris; I10 Essential (primary) hypertension; E78.5 Hyperlipidemia, unspecified; E11.9 Type 2 diabetes mellitus without complications; Z01.810 Encounter for preprocedural cardiovascular examination; Z01.812 Encounter for preprocedural laboratory examination; Z01.818 Encounter for other preprocedural examination; Z11.59 Encounter for screening for other viral diseases; Z79.82 Long term (current) use of aspirin; Z79.84 Long term (current) use of oral hypoglycemic drugs; Z79.02 Long term (current) use of antithrombotics/antiplatelets; Z95.5 Presence of coronary angioplasty implant and graft
CPT/HCPCS: 14021; 36415 ×2; 71046; 80048; 82948; 85025; 87635; 93005; J0690